=== PATIENT | male | born 1950 | race Caucasian/White ===

== ENCOUNTER → 2017-05-17 | Outpatient (CLI) | payer OTHER, MEDICARE | LOC: FCPNEURO 20:00 | PROVIDERS: ATTEND Student in an Organized Health Care Education/Training Program | DX: G47.33 Obstructive sleep apnea (adult) (pediatric) (principal); G47.31 Primary central sleep apnea ==

== ENCOUNTER 2018-04-25 07:25 | Inpatient (IN) | payer OTHER, MEDICARE ==
--- NOTE | 2018-04-25 07:34 | EDPHY ---
H & P Stated Complaint: chest pain x 3 days Time Seen by Provider: 04/25/18 07:33 HPI/ROS: CHIEF COMPLAINT: Left jaw pain HISTORY OF PRESENT ILLNESS: This is a 67-year-old male with known severe coronary artery disease status post stenting in January of 2007. He presents today complaining of left jaw pain. When questioned, he notes that he has been experiencing this on and off for the past few months. Last night the pain worsened and he also experienced pain in the left chest and left arm. He describes this as an aching sensation. He notes a "tightness "of the left chest. The jaw pain is worse when he walks up a slight grade. He carries nitroglycerin but has not used it. He does not feel short of breath. He had mild nausea last night. He is not lightheaded or dizzy. He underwent a nuclear stress test about a year ago and believes that it was normal. He has been compliant with his medications. He has a history of cocaine use, but has not used any illicit drugs for over 20 years. REVIEW OF SYSTEMS: A ten system review of systems was performed and is negative with the exception of the items mentioned in the HPI. Past medical history: 1. Coronary artery disease next 2. Hypertension 3. Hypercholesterolemia Past surgical history: 1. Rotator cuff repair 2. Left knee meniscal repair Family history: Mother of cancer at age 87. His father might have had heart disease, he is not certain Social history:, he is retired. He does not use tobacco products. He is here with his significant other, Darvin. General Appearance: Alert. Vital signs reviewed. Blood pressure 163/72, heart rate 57 at triage. Eyes: Pupils equal and round, no conjunctival injection, no discharge. Anicteric. ENT, Mouth: Mucous membranes are moist, no oropharyngeal erythema or edema. Neck: No lymphadenopathy, supple. No JVD. Respiratory: Lungs are clear to auscultation; no wheezes, rales, or rhonchi. Cardiovascular: Regular rate and rhythm; no murmur, rub, or gallop. Gastrointestinal: Abdomen is soft and nontender, no masses or organomegaly, bowel sounds normal. Skin: Warm and dry, no rashes on exposed skin, normal color. Back: Nontender to palpation over the thoracolumbar spine. No CVAT. Extremities: No lower extremity edema, no calf tenderness or swelling. Neurological: Alert and oriented. Moving all four extremities easily and equally. Psychiatric: Normal affect. - Personal History Current Tetanus Diphtheria and Acellular Pertussis (TDAP): Yes - Medical/Surgical History Hx Asthma: No Hx Chronic Respiratory Disease: No Hx Diabetes: No Hx Cardiac Disease: Yes Hx Renal Disease: No Hx Cirrhosis: No Hx Alcoholism: No Hx HIV/AIDS: No Other PMH: cardiac stents - Social History Smoking Status: Former smoker Constitutional: Initial Vital Signs Temperature (C) 36.4 C 04/25/18 07:28 Heart Rate 57 L 04/25/18 07:28 Respiratory Rate 18 04/25/18 07:28 Blood Pressure 163/72 H 04/25/18 07:28 O2 Sat (%) 98 04/25/18 07:28 O2 Delivery Mode Room Air Allergies/Adverse Reactions: No Known Allergies Allergy (Unverified 01/02/11 17:56) Home Medications: Medication Instructions Recorded Carvedilol [Coreg (*)] 6.25 mg PO BIDMEAL 04/25/18 Gabapentin [Neurontin 300 MG (*)] 600 mg PO HS 04/25/18 Lisinopril [Zestril 10 mg (*)] 10 mg PO HS 04/25/18 Simvastatin [Zocor] 40 mg PO HS 04/25/18 Medical Decision Making - Diagnostics EKG Interpretation: 12 lead EKG is interpreted in [place] by emergency department physician. No ischemic changes. Imaging Results: Imaging Impressions Chest X-Ray 04/25/18 07:39 Impression: Query low-grade congestive failure without jeff pulmonary edema. ED Course/Re-evaluation: He is pain-free in the emergency department. His history is consistent with unstable angina. Initial troponin was elevated at 0.160 1st EKG is negative for signs of ischemia. Dr. Ramiro Love saw the patient in the emergency department. The patient is being admitted for IV heparinization and cardiac catheterization, likely tomorrow. Patient remained stable at while in the emergency department. He did not have chest pain in the department. Differential Diagnosis: Chest pain including but not limited to myocardial ischemia, pulmonary embolus, chest wall pain, pleural inflammation and pulmonary infectious causes. - Data Points Laboratory Results: Laboratory Results 04/25/18 07:38 04/25/18 07:38 04/25/18 04/25/18 04/25/18 07:44 07:38 07:38 WBC RBC Hgb Hct MCV MCH MCHC RDW Plt Count MPV Neut % (Auto) Lymph % (Auto) [place] % (Auto) Eos % (Auto) Baso % (Auto) Nucleat RBC Rel Count Absolute Neuts (auto) Absolute Lymphs (auto) Absolute Monos (auto) Absolute Eos (auto) Absolute Basos (auto) Absolute Nucleated RBC Immature Gran % Immature Gran # PT 13.7 SEC SEC (12.0-15.0) INR 1.09 (0.83-1.16) APTT 30.7 SEC SEC (23.0-38.0) Sodium Potassium Chloride Carbon Dioxide Anion Gap BUN Creatinine Estimated GFR Glucose Hemoglobin A1c Pending Estim Average Glucose Pending Calcium Magnesium CK-MB (CK-2) Fraction POC Troponin I 0.16 ng/mL H ng/mL (0.00-0.08) Troponin I NT-Pro-B Natriuret Pep Triglycerides Cholesterol Cholesterol Risk Factr LDL Cholesterol, Calc LDL Risk Factor VLDL Cholesterol Non-HDL Cholesterol HDL Cholesterol LDL/HDL Ratio Cholesterol/HDL Ratio 04/25/18 04/25/18 04/25/18 07:38 07:38 07:38 WBC 6.21 10^3/uL 10^3/uL (3.80-9.50) RBC 4.94 10^6/uL 10^6/uL (4.40-6.38) Hgb 15.4 g/dL g/dL (13.7-17.5) Hct 43.8 % % (40.0-51.0) MCV 88.7 fL fL (81.5-99.8) MCH 31.2 pg pg (27.9-34.1) MCHC 35.2 g/dL g/dL (32.4-36.7) RDW 13.1 % % (11.5-15.2) Plt Count 168 10^3/uL 10^3/uL (150-400) MPV 9.7 fL fL (8.7-11.7) Neut % (Auto) 56.7 % % (39.3-74.2) Lymph % (Auto) 28.3 % % (15.0-45.0) [place] % (Auto) 10.6 % % (4.5-13.0) Eos % (Auto) 3.1 % % (0.6-7.6) Baso % (Auto) 0.8 % % (0.3-1.7) Nucleat RBC Rel Count 0.0 % % (0.0-0.2) Absolute Neuts (auto) 3.52 10^3/uL 10^3/uL (1.70-6.50) Absolute Lymphs (auto) 1.76 10^3/uL 10^3/uL (1.00-3.00) Absolute Monos (auto) 0.66 10^3/uL 10^3/uL (0.30-0.80) Absolute Eos (auto) 0.19 10^3/uL 10^3/uL (0.03-0.40) Absolute Basos (auto) 0.05 10^3/uL 10^3/uL (0.02-0.10) Absolute Nucleated RBC 0.00 10^3/uL 10^3/uL (0-0.01) Immature Gran % 0.5 % % (0.0-1.1) Immature Gran # 0.03 10^3/uL 10^3/uL (0.00-0.10) PT INR APTT Sodium Cancelled 141 mEq/L mEq/L (135-145) Potassium Cancelled 4.3 mEq/L mEq/L (3.5-5.2) Chloride Cancelled 106 mEq/L mEq/L (97-110) Carbon Dioxide Cancelled 27 mEq/l mEq/l (22-31) Anion Gap Cancelled 8 mEq/L mEq/L (6-14) BUN Cancelled 16 mg/dL mg/dL (7-23) Creatinine Cancelled 1.1 mg/dL mg/dL (0.7-1.3) Estimated GFR Cancelled > 60 Glucose Cancelled 107 mg/dL H mg/dL (70-100) Hemoglobin A1c Estim Average Glucose Calcium Cancelled 9.4 mg/dL mg/dL (8.5-10.4) Magnesium 1.9 mg/dL mg/dL (1.6-2.3) CK-MB (CK-2) Fraction 4.49 ng/mL ng/mL (0.00-4.55) POC Troponin I Troponin I 0.190 ng/mL H ng/mL (0.000-0.034) NT-Pro-B Natriuret Pep 84 pg/mL pg/mL (0-125) Triglycerides 78 mg/dL mg/dL (40-150) Cholesterol 115 mg/dL L mg/dL (140-220) Cholesterol Risk Factr 0.5 (0.2-1.0) LDL Cholesterol, Calc 56 mg/dL L mg/dL (80-100) LDL Risk Factor 0.6 (0.2-1.0) VLDL Cholesterol 16 mg/dL mg/dL (8-25) Non-HDL Cholesterol 72 mg/dL L mg/dL (90-129) HDL Cholesterol 43 mg/dL mg/dL (40-65) LDL/HDL Ratio 1.31 RATIO RATIO (1.00-3.64) Cholesterol/HDL Ratio 2.67 RATIO RATIO (1.00-4.97) Medications Given: Atorvastatin Calcium (Lipitor) 20 mg PO DAILY [facility] Stop: 10/22/18 09:29 Last Admin: 04/25/18 14:40 Dose: 20 mg Heparin Sodium (Porcine) (Heparin 50 Units/Ml (Premix)) 500 mls @ 0 mls/hr IV CONT MARK; As Directed PRN Reason: Protocol Stop: 10/22/18 09:44 Last Admin: 04/25/18 10:15 Dose: 500 mls Lisinopril (Zestril) 10 mg PO DAILY [facility] Stop: 10/22/18 09:29 Last Admin: 04/25/18 14:41 Dose: 10 mg Discontinued Medications Aspirin Buffered (Aspirin Ec) 325 mg PO ONCALL ONE Stop: 04/25/18 09:31 Last Admin: 04/25/18 14:14 Dose: Not Given Diazepam (Valium) 5 mg PO ONCALL ONE Stop: 04/25/18 09:31 Last Admin: 04/25/18 14:15 Dose: Not Given Diphenhydramine HCl (Benadryl) 25 mg PO ONCALL ONE Stop: 04/25/18 09:31 Last Admin: 04/25/18 14:15 Dose: Not Given Famotidine (Pepcid) 20 mg PO ONCALL ONE Stop: 04/25/18 09:31 Last Admin: 04/25/18 14:15 Dose: Not Given Point of Care Test Results: Chemistry 04/25/18 07:44 POC Troponin I 0.16 ng/mL H ng/mL (0.00-0.08) Departure - Departure Disposition: [facility] Inpatient Acute Clinical Impression: Angina of effort Condition: Good
[2018-04-25 07:51] LABS: PLATELET COUNT 168 10^3/uL (150-400)
--- NOTE | 2018-04-25 09:26 | PDCARCONS ---
Cardiology Consult Reason for Consult: Chest pain Chief Complaint: Chest pain Requesting Physician: Hugh History of Present Illness: 67-year-old male with known severe coronary artery disease last investigated in 2006 presents with a several month history of crescendo exertional left jaw pain left arm pain, left chest pain associated with mild nausea and shortness of breath. This occurs with exertion. It has been increasing in duration, frequency, and occurring at lower work loads. Last night while going to the mailbox he began experiencing terrible symptoms and came to the emergency department this morning for further evaluation. He is pain-free on my arrival. Patient denies PND orthopnea. He has had no syncope or near syncope. He has had no palpitations. Patient's coronary disease was diagnosed with exactly the same symptoms in 2006. Coronary angiography at that time showed severe calcific atherosclerotic cardiovascular disease. He presented with an acute inferior wall PR and underwent primary angioplasty of the right coronary. He had a critical circumflex stenosis and underwent elective PCI of that a day later. His LAD was diffusely diseased and heavily calcified. This was managed medically. His LV function at that time was normal. Risk factors have been relatively well modified on Orlin inhibitor, statin therapy. He took dual antiplatelet therapy for 2 years. He has made no significant lifestyle changes. He has been compliant with medications. Cardiovascular disease was felt to be secondary to combination of traditional risk factors plus extensive cocaine use over 20 years. He has been drug free for some time. Coronary angiogram from 2006 reviewed. History Information - Allergies/Home Medication List Allergies/Adverse Reactions: No Known Allergies Allergy (Unverified 01/02/11 17:56) Home Medications: Coreg (*) 04/25/18 [Last Taken Unknown] Gabapentin 04/25/18 [Last Taken Unknown] Lisinopril 04/25/18 [Last Taken Unknown] SIMVASTATIN 04/25/18 [Last Taken Unknown] I have personally reviewed and updated: family history, medical history, social history, surgical history Past Medical History: - Past Medical History coronary artery disease, hypertension, hyperlipidemia - Surgical History Reports: coronary stent - Family History Positive for: non-pertinent - Social History Smoking Status: Former smoker Cardiac History - Cardiac History Cardiac Risk Factors: hypertension (>140/90), lipidemia, age > 65 Timing/Duration: Weeks Severity: moderate Severity Scale: 7 Location: shoulder Activities at Onset: activity Modifying Factors: improves with: rest Associated Symptoms: shortness of breath JUDAH Risk Evaluation greater or equal to 3 CAD risk factors: yes known CAD(stenosis greater or eqaul to 50%): yes ASA use in past 7 days: yes severe angina(greater or equal to 2 episodes in 24hrs): yes EKG ST changes greater or equal to 0.5mm: no positive cardiac marker: yes Physical Exam Physical Exam: Temp Pulse Resp BP Pulse Ox 36.9 C 51 L 18 126/59 H 96 04/25/18 09:14 04/25/18 09:14 04/25/18 09:14 04/25/18 09:14 04/25/18 09:14 Constitutional: no apparent distress, appears nourished Eyes: PERRL, anicteric sclera Ears, Nose, Mouth, Throat: moist mucous membranes Cardiovascular: regular rate and rhythym, no murmur, rub, or gallop, No JVD Peripheral Pulses: 1+: carotid (R), carotid (L), femoral (R), femoral (L), dorsalis-pedis (R), dorsalis-pedis (L) Respiratory: no respiratory distress, no rales or rhonchi Gastrointestinal: normoactive bowel sounds, soft, non-tender abdomen, no palpable masses Genitourinary: no bladder fullness Skin: warm, normal color, No rash Musculoskeletal: No joint tenderness Neurologic: AAOx3, sensation intact bilaterally, No facial droop Psychiatric: interacting appropriately, not anxious Lymph, Heme, Immunologic: no cervical LAD, no supraclavicular LAD Lab and Imaging 04/25/18 07:38 04/25/18 07:38 WBC 6.21 10^3/uL (3.80-9.50) 04/25/18 07:38 RBC 4.94 10^6/uL (4.40-6.38) 04/25/18 07:38 Hgb 15.4 g/dL (13.7-17.5) 04/25/18 07:38 Hct 43.8 % (40.0-51.0) 04/25/18 07:38 MCV 88.7 fL (81.5-99.8) 04/25/18 07:38 MCH 31.2 pg (27.9-34.1) 04/25/18 07:38 MCHC 35.2 g/dL (32.4-36.7) 04/25/18 07:38 RDW 13.1 % (11.5-15.2) 04/25/18 07:38 Plt Count 168 10^3/uL (150-400) 04/25/18 07:38 MPV 9.7 fL (8.7-11.7) 04/25/18 07:38 Neut % (Auto) 56.7 % (39.3-74.2) 04/25/18 07:38 Lymph % (Auto) 28.3 % (15.0-45.0) 04/25/18 07:38 [place] % (Auto) 10.6 % (4.5-13.0) 04/25/18 07:38 Eos % (Auto) 3.1 % (0.6-7.6) 04/25/18 07:38 Baso % (Auto) 0.8 % (0.3-1.7) 04/25/18 07:38 Nucleat RBC Rel Count 0.0 % (0.0-0.2) 04/25/18 07:38 Absolute Neuts (auto) 3.52 10^3/uL (1.70-6.50) 04/25/18 07:38 Absolute Lymphs (auto) 1.76 10^3/uL (1.00-3.00) 04/25/18 07:38 Absolute Monos (auto) 0.66 10^3/uL (0.30-0.80) 04/25/18 07:38 Absolute Eos (auto) 0.19 10^3/uL (0.03-0.40) 04/25/18 07:38 Absolute Basos (auto) 0.05 10^3/uL (0.02-0.10) 04/25/18 07:38 Absolute Nucleated RBC 0.00 10^3/uL (0-0.01) 04/25/18 07:38 Immature Gran % 0.5 % (0.0-1.1) 04/25/18 07:38 Immature Gran # 0.03 10^3/uL (0.00-0.10) 04/25/18 07:38 Sodium 141 mEq/L (135-145) 04/25/18 07:38 Potassium 4.3 mEq/L (3.5-5.2) 04/25/18 07:38 Chloride 106 mEq/L (97-110) 04/25/18 07:38 Carbon Dioxide 27 mEq/l (22-31) 04/25/18 07:38 Anion Gap 8 mEq/L (6-14) 04/25/18 07:38 BUN 16 mg/dL (7-23) 04/25/18 07:38 Creatinine 1.1 mg/dL (0.7-1.3) 04/25/18 07:38 Estimated GFR > 60 04/25/18 07:38 Glucose 107 mg/dL (70-100) H 04/25/18 07:38 Calcium 9.4 mg/dL (8.5-10.4) 04/25/18 07:38 POC Troponin I 0.16 ng/mL (0.00-0.08) H 04/25/18 07:44 EKG Interpretation: Positive for: normal sinsus rhythm A/P Assessment: 67-year-old male known severe atherosclerotic cardiovascular disease, heavily calcified coronary arteries by angiography in 2006 status post 2 vessel PCI of the eek right and eek circumflex with residual LAD disease at that time presenting with crescendo angina. Typical history with jaw pain, arm pain associated with increasing frequency, increasing duration, at lower work loads now with elevated troponin. Patient is currently pain-free with a normal EKG. Recommendations are for 24 hr of heparin with diagnostic angiogram to be performed in the morning. Options based on prior angiography seem to be somewhat limited. Will await results of angiography to make definitive decision on medical therapy versus surgical therapy versus repeat PCI. Continue to pursue aggressive secondary risk factor modification. Risks and benefits of this approach were discussed with the patient. Will proceed. No indications for angiography today. In light of prior angiography would recommend having surgical consultation available. Due to the heavily calcified nature of his coronaries. Reviewing prior angiography and need for large sheath sized for potential rotational atherectomy would recommend groin approach. Plan: Heparin for 24-48 hours Diagnostic coronary angiogram scheduled for tomorrow morning. Continue aggressive medical therapy including beta-annabella, statin, aspirin. Review of Systems Review of Systems: - Review of Systems Constitutional: denies: chills, fever, malaise EENTM: no symptoms reported Respiratory: no symptoms reported Cardiac: denies: edema, irregular heart rate, lightheadedness, palpitations, syncope Gastrointestinal/Abdominal: denies: abdominal pain, diarrhea, nausea, vomiting, black stools, blood streaked stools Genitourinary: no symptoms Musculoskelatal: no symptoms Skin: no symptoms Neurological: no symptoms Hematologic/Lymphatic: no symptoms reported Immunologic/allergic: no symptoms reported Past Medical History PMH: - Personal History Current Tetanus Diphtheria and Acellular Pertussis (TDAP): Yes - Medical/Surgical History Hx Asthma: No Hx Chronic Respiratory Disease: No Hx Cardiac Disease: Yes Hx Diabetes: No Hx Renal Disease: No Hx Alcoholism: No Hx Cirrhosis: No Hx HIV/AIDS: No Other PMH: cardiac stents - Social History Smoking Status: Former smoker Additional Social History:
[2018-04-25] MEDS ORDERED: NITROGLYCERIN 0.4 MG BTL SL PRN (09:30)
[2018-04-25] MEDS ORDERED: DIAZEPAM 5 MG TAB PO ONE (09:30)
[2018-04-25] MEDS ORDERED: ASPIRIN EC 325 MG TAB PO ONE (09:30)
[2018-04-25] MEDS ORDERED: FAMOTIDINE 20 MG TAB PO ONE (09:30)
[2018-04-25] MEDS ORDERED: diphenhydrAMINE 25 MG CAP PO ONE (09:30)
[2018-04-25] MEDS ORDERED: ACETAMINOPHEN 325 MG TAB PO PRN (09:30)
[2018-04-25] MEDS: HEPARIN/DEXTROSE 500 ML IV SCH (10:15)
--- NOTE | 2018-04-25 10:16 | ASMTCMCOM ---
CM Note CM Note Notes: Reviewed chart. Pt presented to the Emergency Department w/ c/o chest pain x several days. History includes coronary artery disease with prior stenting, HTN, HLD and former smoker. Pt is and lives in [place]. His son, Carlitos Trinidad is his emergency contact . Pt to be admitted for further evaluation and treatment. Discharge needs remain unclear at this time. CM will continue to follow. Discharge Plan: To be determined Date Signed: 04/25/2018 10:16 AM Electronically Signed By:Alda Reynoso RN
[2018-04-25 10:19] LABS: INR 1.09 (0.83-1.16); PROTIME(PATIENT) 13.7 SEC (12.0-15.0)
--- NOTE | 2018-04-25 12:05 | ECHO ---
[email or web address] [address] [address] Main: [phone] Echocardiography Examination Transthoracic Name: CECELIA AGUILAR MR#: [id number] Study Date: 04/25/2018 Study Time: 10:40 AM Date of : 1950 Age: 67 year(s) Height: 177.8 cm (70 in.) Weight: 108.86 kg (240 lb.) BSA: 2.26 m2 Gender: Male Examination: Echo Indication: ACS, hx 4 stents Image Quality: Technically Difficult Contrast: Requested by: Ramiro Love md BP: / Heart Rate: Rhythm: Indication: ACS, hx 4 stents Procedure Staff Referring Physician: Commis Chef: Mariela Sheikh RDCS Reading Physician: Ramiro Love MD Requesting Provider: Ordering Physician: Ramiro Love MD Indication: ACS, hx 4 stents Measurements Chambers AV/MV Label Value Normal Value Label Value Normal Value EF lower range (%) 55 % AV PGmax 5 mmHg EF upper range (%) 60 % AV PGmean 3 mmHg IVSd, 2D 0.9 cm (0.6cm - 1.1cm) AV Vmax, Caliper 1.13 m/s LVDd, 2D 5.5 cm (4.2cm - 5.9cm) MV A Vmax 0.57 m/s LVPWd, 2D 0.9 cm (0.6cm - 1cm) MV E' lateral 0.16 m/s LADs, 2D 4.9 cm (3cm - 4cm) MV E' mean 0.12 m/s Additional Vessels MV E' septal 0.07 m/s Label Value Normal Value MV E Vmax 0.98 m/s AoAsc 2.8 cm MV E/A 1.72 AoRoot, MM 2.9 cm (2.2cm - 3.7cm) MV E/E' lateral 6.3 MV E/E' mean 8.52 MV E/E' septal 15 (0.45 - 1.25) Conclusions Overall Conclusions: No pericardial effusion. Preserved LV systolic function with question of regional wall motion abnormalities. Mild mitral regurgitation. Patient: CECELIA AGUILAR Study Date: 04/25/2018 Page 1 of 2 10:40 AM Findings Left Ventricle: Diastolic dysfunction is indeterminate.. EF range is estimated at 55 % - 60 %. Cannot R/O mid/basal inferolateral hypokinesis. All remaining LV segments appear to have normal motion. Right Ventricle: Normal size right ventricle. Left Atrium: The left atrium is mildly dilated. Right Atrium: The right atrium is normal in size. Mitral Valve: Mitral valve appears structurally normal. Mild mitral regurgitation. Aortic Valve: No aortic valve regurgitation. Aortic leaflets exhibit mild calcification. Tricuspid Valve: Tricuspid valve leaflets are structurally normal. Pulmonic Valve: Pulmonic valve is poorly visualized. Aorta: The aortic root size in M-mode measures 2.9 cm. The ascending aorta measures 2.8 cm. Aorta Measurements AoRoot, MM is 2.9 cm. Pericardium: A pericardial fat pad is present. Exam Details Procedure Ordered: Echo Image Quality: Technically Difficult (No Signature Object) Patient: CECELIA AGUILAR Study Date: 04/25/2018 Page 2 of 2 10:40 AM [id number]
[2018-04-25 14:34] LABS: CREATINE KINASE 155 IU/L (0-224)
[2018-04-25] MEDS: ATORVASTATIN CALCIUM 20 MG TAB PO SCH (14:40)
[2018-04-25] MEDS: LISINOPRIL 10 MG TAB PO SCH (14:41)
--- NOTE | 2018-04-25 16:33 | CPEKG ---
Test Reason : OPEN Blood Pressure : / mmHG Vent. Rate : 052 BPM Atrial Rate : 051 BPM P-R Int : 180 ms QRS Dur : 088 ms QT Int : 418 ms P-R-T Axes : 068 046 056 degrees QTc Int : 389 ms Sinus rhythm Confirmed by Makenzie Reese ([id number]) on 04/25/2018 4:33:46 PM Referred By: Makenzie Reese Confirmed By:Makenzie Reese
[2018-04-25 17:11] LABS: CREATINE KINASE 183 IU/L (0-224)
[2018-04-25] MEDS: CARVEDILOL 6.25 MG TAB PO SCH (18:28)
[2018-04-25 20:03] LABS: CREATINE KINASE 211 IU/L (0-224)
[2018-04-25] MEDS ORDERED: METOPROLOL TARTRATE 5 MG/5 ML INJ IVP PRN (20:24)
[2018-04-25] MEDS ORDERED: METOPROLOL TARTRATE 5 MG/5 ML INJ IVP ONE (20:30)
[2018-04-25] MEDS: TEMAZEPAM 15 MG CAP PO PRN (23:08)
[2018-04-26 03:51] LABS: CREATINE KINASE 175 IU/L (0-224)
[2018-04-26] MEDS ORDERED: ASPIRIN EC 325 MG TAB PO ONE (07:00)
[2018-04-26] MEDS ORDERED: diphenhydrAMINE 25 MG CAP PO ONE (07:00)
[2018-04-26] MEDS ORDERED: DIAZEPAM 5 MG TAB PO ONE (07:00)
[2018-04-26] MEDS ORDERED: FAMOTIDINE 20 MG TAB PO ONE (07:00)
[2018-04-26] MEDS ORDERED: LIDOCAINE 1% 300 MG/30 ML SDV ONE (07:22)
[2018-04-26] MEDS ORDERED: MIDAZOLAM 2 MG/2 ML VIAL ONE (07:23)
[2018-04-26] MEDS ORDERED: IOPAMIDOL (ISOVUE-370) 150 ML BTL IV ONE ×2 (07:23)
[2018-04-26] MEDS ORDERED: fentaNYL 100 MCG/2 ML INJ ONE (07:23)
[2018-04-26] MEDS ORDERED: VERAPAMIL 5 MG/2 ML VIAL ONE (08:04)
[2018-04-26] MEDS ORDERED: HEPARIN 10,000 UNIT/10 ML MDV (1,000 UNIT/ML) ONE (08:05)
--- NOTE | 2018-04-26 08:13 | PDPROPOC ---
Sedation Plan of Care Sedation Plan of Care: vital signs stable, mental status noted, patient educated of risks, benefits, alternatives, patient can tolerate sedation ASA Classification: ASA 2 Planned drugs: fentanyl, midazolam Mallampati Score: Class 2 Mallampati Reference Image: Patient passed 3-3-2 rule?: Yes
[2018-04-26] MEDS ORDERED: ONDANSETRON 4 MG/2 ML VIAL ONE (08:21)
--- NOTE | 2018-04-26 08:49 | PDDXCAT ---
Diagnostic Cath Note - . Date: 04/26/18 Pipe Assembly Worker: Ivan Indication: CCC Class III and IV angina on medical treatment - Procedure Access: right wrist Procedure: left heart catheterization, coronary angiography, left ventriculogram - Materials Left Heart Cath size: 5F Left Heart Cath materials: pigtail, Felipe's R (Walls 4) - Findings-Left Heart Catheterization LM: Unobstructed LAD: Diffuse 75-85% stenosis of the mid LAD LCX: 99% stenosis of the proximal circumflex RCA: Dominant: 90% stenosis of the distal RCA EDP: 15 mm of mercury LVEF: 65% Wall motion: Normal Complications: None Estimated blood loss: <50ml Closure method: TR Band Assessment: Severe three-vessel coronary disease with critical stenosis of the circumflex, RCA and progressive mid LAD stenosis. Preserved LV systolic function. Plan: Recommend coronary bypass grafting x4. Would consider repeat PCI of the right coronary and circumflex with potential rotational atherectomy of the LAD if the patient declines. Continue aggressive secondary prevention. Patient Problems: Problems Problem Status Onset Angina of effort Acute
--- NOTE | 2018-04-26 08:52 | SOAPPROG ---
[facility] Progress Note Assessment/Plan: Assessment: Problem list: 1. Crescendo angina 2. Multivessel coronary artery disease with preserved LV systolic function 3. Hyperlipidemia 4. History of acute inferior wall myocardial infarction, Procedure: Left heart catheterization coronary ventricular angiography, echocardiography 04/26/18 08:49 Impression: Stable overnight without recurrent angina. Troponin suggest higher cardiovascular risk over the next 30 days. Patient tolerating heparin well. Coronary angiography shows three-vessel disease with preserved LV systolic function. Clear progression [place] vessels. Recommend coronary artery bypass grafting x4. If patient declines would consider high risk PCI of the right coronary clear/circumflex followed by rotational atherectomy of the LAD. Recommendations: Surgical consultation. Continue aggressive secondary prevention In light of elevated troponins and lesions seen on angiography will continue heparin while determining revascularization strategy. Subjective: Uneventful 24 hr. Clear rise in troponin. Long discussion today after reviewing his angiograms from 2006 regarding revascularization strategies in the setting of known critical LAD disease in 2006. Will plan for a diagnostic angiogram today which has already been performed. Revascularization strategies to be determined over the next 24 hr. Cardiac review of systems is negative for chest pain, shortness of breath, PND , orthopnea, palpitations, syncope, near syncope, edema. Objective: Vital Signs Temp Pulse Resp BP Pulse Ox 36.7 C 53 L 18 130/67 H 91 L 04/26/18 08:00 04/26/18 08:00 04/26/18 08:00 04/26/18 08:00 04/26/18 08:00 04/25/18 04/26/18 04/27/18 05:59 05:59 05:59 Intake Total 1585 Balance 1585 PT 13.7 SEC (12.0-15.0) 04/25/18 07:38 INR 1.09 (0.83-1.16) 04/25/18 07:38 Physical Exam - Physical Exam General Appearance: alert, no apparent distress Neck: supple Respiratory: lungs clear Cardiac/Chest: regular rate, rhythm Peripheral Pulses: 1+: carotid (R), carotid (L), femoral (R), femoral (L) Abdomen: normal bowel sounds, non-tender, soft Back: Normal inspection Skin: No rash Extremities: No pedal edema, No calf tenderness Neuro/Psych: alert, No facial droop ICD10 Worksheet Patient Problems: Problems Problem Status Onset Angina of effort Acute
[2018-04-26] MEDS: LISINOPRIL 10 MG TAB PO SCH (11:02)
[2018-04-26] MEDS: CARVEDILOL 6.25 MG TAB PO SCH ×2 (11:02→17:58)
[2018-04-26] MEDS: ATORVASTATIN CALCIUM 20 MG TAB PO SCH (11:02)
[2018-04-26] MEDS ORDERED: LIDOCAINE 1% 2 ML INJ ID PRN (11:13)
--- NOTE | 2018-04-26 12:15 | ASMTCMCOM ---
CM Note CM Note Notes: Dr Love recommending CABG x 4. Patient has agreed, and the procedure is scheduled for tomorrow 04/27. Discharge needs TBD on an ongoing basis. Case Management will follow. Date Signed: 04/26/2018 12:14 PM Electronically Signed By:Kanwal Meza RN
[2018-04-26] MEDS ORDERED: MAGNESIUM HYDROXIDE 30 ML UDCUP PO ONE (14:00)
--- NOTE | 2018-04-26 15:44 | GCON ---
[f rep st] CONSULTATION DATE OF CONSULTATION: 04/26/2018 REASON FOR CONSULTATION: Coronary artery disease. HISTORY OF PRESENT ILLNESS: The patient is a 67-year-old gentleman with a history of coronary artery disease who presented with progressive angina. This has been getting progressively worse, and he ca me to the hospital for evaluation after a particularly difficult episode. He has had a previous infe rior wall CA and had PCI of the right coronary back in 2006. The remainder of his disease was manage d medically. He now returns with recurrent angina. PAST MEDICAL HISTORY: Remarkable for coronary artery disease, hypertension and hyperlipidemia. MEDICATIONS: Coreg, gabapentin, lisinopril, and simvastatin. PHYSICAL EXAMINATION: GENERAL APPEARANCE: He is a well-developed, well nourished-male in no acute d istress. HEENT: Pupils are equally round, reactive. CARDIAC: Reveals a regular rate. No murmur. LUNGS: Clear to auscultation. ABDOMEN: Soft and nontender. EXTREMITIES: Show no signs of previo us vein stripping. Both greater saphenous veins are intact bilaterally. DIAGNOSTIC DATA: Review of coronary angiography shows severe three-vessel disease and review of the echocardiogram shows normal left ventricular function with no valvular heart disease. His laboratory studies show baseline creatinine is 1.1. Hematocrit 43. EKG is normal sinus rhythm. IMPRESSION: Significant multivessel coronary artery disease with progressive angina. I had a length y discussion with the patient including risks, benefits, and alternatives to coronary artery bypass g kumar, and he has agreed to my recommendation for surgical revascularization. The plan is for surg payal tomorrow. He has been maintained on heparin. I appreciate the opportunity to see him. /[id number]/MODL
--- NOTE | 2018-04-26 16:27 | PDMN ---
Medical Necessity Medical necessity: MCG M40 Angina, A-1 day: 67 yo presented w/ angina, admit to [facility] for workup initially, s/p heart cath. Pt w/ sig multivessel CAD w/ progressive angina, remains on heparin gtt, plan for OR tomorrow for CABG. Change to IP status 04/26/18@1620 per MD order.
[2018-04-26] MEDS ORDERED: MAGNESIUM CITRATE 300 ML BOTTLE PO ONE (20:45)
[2018-04-26] MEDS: GABAPENTIN 300 MG CAP PO SCH (20:52)
[2018-04-26] MEDS ORDERED: CHLORHEXIDINE GLUC HIBICLENS 118 ML BTL TP SCH (21:00)
[2018-04-26] MEDS: HEPARIN/DEXTROSE 500 ML IV SCH (23:04)
[2018-04-26] MEDS: TEMAZEPAM 15 MG CAP PO PRN (23:05)
[2018-04-27] MEDS ORDERED: MANNITOL 25% 12.5 GM/50 ML VIAL IVP ONE (06:00)
[2018-04-27] MEDS ORDERED: NS 1,000 ML IV ONE (06:00)
[2018-04-27] MEDS ORDERED: PHENYLEPHRINE HCL 50 MG in NS 250 ML IV ONE (06:00)
[2018-04-27] MEDS ORDERED: NOREPINEPHRINE BITARTRATE 16 MG in NS 250 ML IV ONE (06:00)
[2018-04-27] MEDS ORDERED: AMINOCAPROIC ACID 5 GM/20 ML VIAL IV ONE (06:00)
[2018-04-27] MEDS ORDERED: CARDIOPLEGIC SOLUTION 1,052.8 ML PF ONE (06:00)
[2018-04-27] MEDS ORDERED: VERAPAMIL 5 MG, NITROGLYCERIN 2.5 MG, HEPARIN 500 UNIT, SODIUM BICARBONATE 0.2 MEQ in L... MISC ONE (06:00)
[2018-04-27] MEDS ORDERED: MUPIROCIN 2% 22 GM OINT NS ONE (06:00)
[2018-04-27] MEDS ORDERED: INSULIN REGULAR HUMAN 100 UNIT in NS 100 ML IV ONE (06:00)
[2018-04-27] MEDS ORDERED: CITRATE DEXTROSE SOLN 500 ML BAG MISC ONE (06:00)
[2018-04-27] MEDS ORDERED: ceFAZolin 2 GM/DEXTROSE 100 ML IV ONE (06:00)
[2018-04-27] MEDS ORDERED: PAPAVERINE HCL 60 MG in NS 100 ML IV ONE (06:00)
[2018-04-27] MEDS ORDERED: EPINEPHrine 1 MG/ML INJ ONE (07:29)
[2018-04-27] MEDS ORDERED: PHENYLEPHRINE 10 MG/ML SDV ONE (07:31)
[2018-04-27] MEDS ORDERED: ROCURONIUM 100 MG/10 ML VIAL ONE (07:34)
[2018-04-27] MEDS ORDERED: LIDOCAINE 2% 5 ML SDV ONE (07:36)
--- NOTE | 2018-04-27 07:52 | PDHPUP ---
History & Physical Update H&P update statement: This history and physical update is based on an assessment of the patient which was completed after admission or registration (within 24 hours), but prior to the surgery/procedure. H&P update: no change in patient's condition since H&P completed
[2018-04-27] MEDS ORDERED: DOBUTamine 500 MG in D5W 250 ML IV ONE (08:00)
[2018-04-27] MEDS ORDERED: MILRINONE/DEXTROSE/100 ML BAG IV ONE (08:22)
[2018-04-27] MEDS ORDERED: CALCIUM CHLORIDE 1 GM/10 ML INJ ONE ×3 (08:22→08:25)
[2018-04-27] MEDS ORDERED: PROTAMINE SULFATE 50 MG/5 ML VIAL IVP ONE ×2 (08:22→12:08)
[2018-04-27] MEDS ORDERED: niCARdipine/NACL/200 ML BAG IV ONE (08:23)
[2018-04-27] MEDS ORDERED: HEPARIN 10,000 UNIT/10 ML MDV (1,000 UNIT/ML) ONE ×2 (08:23→08:26)
[2018-04-27] MEDS ORDERED: AMINOCAPROIC ACID 5 GM/20 ML VIAL ONE ×2 (08:23→08:25)
[2018-04-27] MEDS ORDERED: DOPamine/DEXTROSE 400 MG/250 ML BAG IV ONE (08:23)
[2018-04-27] MEDS ORDERED: NA BICARBONATE 50 MEQ/50 ML VIAL ONE (08:23)
[2018-04-27] MEDS ORDERED: AMIODARONE HCL 150 MG/3 ML VIAL ONE ×2 (08:24→08:26)
[2018-04-27] MEDS ORDERED: ceFAZolin 1 GM VIAL ONE (08:24)
[2018-04-27] MEDS ORDERED: NITROGLYCERIN/D5W 50 MG/250 ML BOTTLE IV ONE (08:24)
[2018-04-27] MEDS ORDERED: ADENOSINE 6 MG/2 ML VIAL ONE (08:24)
[2018-04-27] MEDS ORDERED: SODIUM BICARBONATE 50 MEQ/50 ML SYR ONE (08:25)
[2018-04-27] MEDS ORDERED: LIDOCAINE 2% 100 MG/5 ML SYR ONE (08:25)
[2018-04-27] MEDS ORDERED: ALBUMIN 5% 250 ML BOTTLE IV ONE ×2 (08:25→12:25)
[2018-04-27] MEDS ORDERED: methylPREDNISolone SOD SUCC 1 GM/8 ML VIAL ONE (08:26)
[2018-04-27] MEDS ORDERED: CITRATE DEXTROSE SOLN 500 ML BAG ONE (08:26)
[2018-04-27] MEDS ORDERED: MAGNESIUM SULFATE 1 GM/2 ML VIAL ONE (08:26)
[2018-04-27] MEDS ORDERED: PAPAVERINE HCL 60 MG/2 ML SDV ONE ×2 (08:48→09:57)
[2018-04-27] MEDS ORDERED: VERAPAMIL 5 MG/2 ML VIAL ONE (08:48)
[2018-04-27] MEDS ORDERED: MINERAL OIL 10 ML VIAL ONE (08:49)
[2018-04-27] MEDS ORDERED: LR 1,000 ML IV ONE (09:12)
[2018-04-27] MEDS ORDERED: CEFAZOLIN 2 GM/DEXTROSE/100 ML BAG IV ONE (09:14)
[2018-04-27] MEDS ORDERED: MUPIROCIN 2% 22 GM OINT ONE (09:14)
[2018-04-27] MEDS ORDERED: fentaNYL 250 MCG/5 ML INJ ONE ×2 (09:36)
[2018-04-27] MEDS ORDERED: PROPOFOL 200 MG/20 ML VIAL ONE (09:36)
[2018-04-27] MEDS ORDERED: METOPROLOL TARTRATE 5 MG/5 ML INJ ONE (09:41)
--- NOTE | 2018-04-27 09:46 | PDANEPAE ---
ANE History of Present Illness cab ANE Past Medical History - Cardiovascular History Hx Hypertension: Yes Hx Arrhythmias: No Hx Chest Pain: Yes Hx Coronary Artery / Peripheral Vascular Disease: Yes Hx CHF / Valvular Disease: No Hx Palpitations: No - Pulmonary History Hx COPD: No Hx Asthma/Reactive Airway Disease: No Hx Recent Upper Respiratory Infection: No Hx Oxygen in Use at Home: No Hx Sleep Apnea: Yes Sleep Apnea Screening Result - Last Documented: Positive - Neurologic History Hx Cerebrovascular Accident: No Hx Seizures: No Hx Dementia: No - Endocrine History Hx Diabetes: No Hypothyroid: No Hyperthyroid: No Obesity: mild - Renal History Hx Renal Disorders: No - Liver History Hx Hepatic Disorders: No - GI History GERD: no ANE Review of Systems Review of Systems: - Exercise capacity Exercise capacity: <4 METS ANE Patient History - Allergies Allergies/Adverse Reactions: No Known Allergies Allergy (Unverified 01/02/11 17:56) - Home Medications Home medications: home medication list seen and reviewed Home Medications: Carvedilol [Coreg (*)] 6.25 mg PO BIDMEAL 04/25/18 [Last Taken 04/25/18] Gabapentin [Neurontin 300 MG (*)] 600 mg PO HS 04/25/18 [Last Taken 04/24/18] Lisinopril [Zestril 10 mg (*)] 10 mg PO HS 04/25/18 [Last Taken 04/24/18] Simvastatin [Zocor] 40 mg PO HS 04/25/18 [Last Taken 04/24/18] - NPO status NPO Status: no food or drink >8 hours NPO Since - Liquids (Date): 04/27/18 NPO Since - Liquids (Time): 00:00 NPO Since - Solids (Date): 04/27/18 NPO Since - Solids (Time): 00:00 - Anes Hx Anes Hx: post operative nausea and vomiting Hx Anesthesia Complications (with details): n/v with opioids - Smoking Hx Smoking Status: Former smoker ANE Labs/Vital Signs - Labs Result Diagrams: 04/25/18 07:38 04/25/18 07:38 - Vital Signs Blood Pressure: 120/76 Heart Rate: 56 Respiratory Rate: 11 O2 Sat (%): 96 Height: 177.8 cm Weight: 108.4 kg ANE Physical Exam - Airway Mallampati Score: Class 2 Mouth exam: normal dental/mouth exam - Pulmonary Pulmonary: no respiratory distress - Cardiovascular Cardiovascular: regular rate and rhythym - ASA Status ASA Status: III ANE Anesthesia Plan Anesthesia Plan: general endotracheal anesthesia Lines/Monitors: arterial line, central line, ZEFERINO (pulm art cath)
[2018-04-27] MEDS ORDERED: MIDAZOLAM 2 MG/2 ML VIAL IVP ONE (10:01)
[2018-04-27] MEDS ORDERED: MIDAZOLAM 2 MG/2 ML VIAL ONE (10:08)
[2018-04-27] MEDS ORDERED: SUCCINYLCHOLINE CHLORIDE 200 MG/10 ML SYR IVP ONE (10:29)
[2018-04-27] MEDS ORDERED: GLYCOPYRROLATE 0.2 MG/1 ML VIAL ONE ×2 (11:29)
[2018-04-27] MEDS ORDERED: PROPOFOL/EMULSION 500 MG/50 ML BOTTLE IV ONE ×2 (15:02→16:35)
[2018-04-27] MEDS ORDERED: ALBUMIN 5% 250 ML IV PRN (15:45)
[2018-04-27] MEDS ORDERED: ACETAMINOPHEN 650 MG SUPP PR PRN (15:45)
[2018-04-27] MEDS ORDERED: LACTULOSE 20 GM/30 ML UDCUP PO PRN (15:45)
[2018-04-27] MEDS ORDERED: D50W 25 GM/50 ML SYR IVP PRN (15:45)
[2018-04-27] MEDS ORDERED: PANTOPRAZOLE SODIUM 40 MG VIAL IVP ONE (15:45)
[2018-04-27] MEDS ORDERED: SODIUM CL NASAL 45 ML BTL EACHNARE PRN (15:45)
[2018-04-27] MEDS ORDERED: MEPERIDINE 25 MG/0.5 ML AMP IVP PRN (15:45)
[2018-04-27] MEDS ORDERED: MAGNESIUM HYDROXIDE 30 ML UDCUP PO PRN (15:45)
[2018-04-27] MEDS ORDERED: POTASSIUM Cl (KCl) 50 ML IV PRN (15:45)
[2018-04-27] MEDS ORDERED: BISACODYL 10 MG SUPP PR PRN (15:45)
[2018-04-27] MEDS ORDERED: fentaNYL 100 MCG/2 ML INJ IVP PRN (15:45)
[2018-04-27] MEDS ORDERED: CEPACOL LOZENGE PO PRN (15:45)
[2018-04-27] MEDS ORDERED: POLYETHYLENE GLYCOL 3350 17 GM PKT PO PRN (15:45)
[2018-04-27] MEDS ORDERED: NS 1,000 ML IV SCH (15:45)
[2018-04-27] MEDS ORDERED: ONDANSETRON DISINTEGRATING 4 MG TAB PO PRN (15:45)
--- NOTE | 2018-04-27 15:55 | POSTOPPROG ---
Post Op Note Date of Operation: 04/27/18 Surgeon: Richard Madison Assistant: Mukul Anesthesiologist: Tal Anesthesia: GET(General Endotracheal) Pre-op Diagnosis: CAD Post-op Diagnosis: same Procedure: CABGx4 (GILLILAND-LAD, SVG-D1, SVG-OM, SVG-RCA), external occlusion of ETHEL Inf/Abcess present in the surg proc area at time of surgery?: No Depth: Organ Space EBL: 100-500 Drains: Other (Chest tubes x3 (left, right, mediastinal); v-wires) Specimen(s): none
[2018-04-27] MEDS ORDERED: INSULIN REGULAR HUMAN 100 UNIT in NS 100 ML IV SCH (16:00)
[2018-04-27] MEDS ORDERED: NOREPINEPHRINE BITARTRATE 16 MG in NS 250 ML IV SCH (16:00)
[2018-04-27] MEDS ORDERED: niCARdipine/NACL 200 ML IV SCH (16:00)
[2018-04-27] MEDS ORDERED: NALOXONE HCL 0.4 MG/ML INJ IVP PRN (16:08)
--- NOTE | 2018-04-27 16:09 | POSTANESTH ---
Post Anesthetic Evaluation Cardiovascular Status: Tx Hyper/Hypo-tension (stable on infusions), Other, See Comment Respiratory Status: Other, See Comment (stable on vent) Level of Consciousness/Mental Status: Other, See Comment (sedated with propofol) Pain Control: Adequate, Prn Tx Ordered Nausea/Vomiting Control: Adequate, Prn Tx Ordered Complications Possibly Related to Anesthesia: None Noted
--- NOTE | 2018-04-27 16:22 | GCON ---
[f rep st] CONSULTATION BOTTLE ASSEMBLER CONSULTATION I was asked to see the patient by Dr. Richard Madison. REASON FOR ADMISSION: Postoperative 4 vessel coronary bypass graft. The patient is a 67-year-old white male with a past medical history including hypertension, hyperlipi demia, and coronary artery disease for which he has undergone stent placement years ago. Again, he i s examined postoperatively after receiving a 4 vessel coronary bypass graft. He apparently did well intraoperatively. He is currently sedated and on mechanical ventilation. All history is gleaned fro m the medical record. REVIEW OF SYSTEMS: Ten-point review of systems was attempted but unable to be performed secondary to sedation and mechanical ventilation. FAMILY HISTORY: Noncontributory. PAST MEDICAL HISTORY: Significant for hypertension, hyperlipidemia, and coronary artery disease. ALLERGIES: No known allergies to medications. MEDICATIONS: Medications at home include simvastatin, lisinopril, gabapentin, and Coreg. SOCIAL HISTORY: Previous smoker, none for many years. No significant alcohol use. He has a previou s history of cocaine use over 20 years ago. PHYSICAL EXAM: VITAL SIGNS: Blood pressure is 120/76. Pulse 56. Respirations are 11. Temperature is 36.5. Oxygen saturation 96% on mechanical ventilation. GENERAL: He is a mildly overweight 67-y ear-old white male who is sedated and on mechanical ventilation. HEENT: Eyes are PERRL, EOMI. Thro at: Endotracheal tube is in good position. NECK: Supple. No cervical adenopathy. HEART: Regular rate and rhythm without murmurs, rubs, gallops. LUNGS: Diminished breath sounds but no wheeze. AB DOMEN: Soft, nontender. Bowel sounds are present in all 4 quadrants. EXTREMITIES: No clubbing, cy anosis, or edema. LABORATORIES: His white count is 6.2, hemoglobin 15, hematocrit 43, platelet count is 168. INR is 1 .09. Sodium 141, potassium 4.3, chloride 106, CO2 is 27, BUN 16, creatinine 1.1, glucose is 107. IMPRESSION: 1. Coronary artery disease. 2. Status post coronary artery bypass graft. 3. Acute hypoxemic respiratory failure secondary to above. 4. History of hypertension. 5. History of hyperlipidemia. RECOMMENDATIONS: 1. Continue mechanical ventilation for now. 2. Wean to extubation. 3. Aggressive blood sugar control. 4. DVT and PE prophylaxis, holding anticoagulation for now. 5. Stress ulcer prophylaxis. 6. PT and OT. 7. Early ambulation. /[id number]/MODL
[2018-04-27] MEDS: PROPOFOL/EMULSION 50 ML IV SCH ×2 (16:30→18:18)
[2018-04-27] MEDS ORDERED: ALBUMIN 5% 500 ML BOTTLE IV ONE (17:33)
[2018-04-27] MEDS: CARVEDILOL 6.25 MG TAB PO SCH (17:53)
[2018-04-27] MEDS: LISINOPRIL 10 MG TAB PO SCH (17:53)
[2018-04-27] MEDS: ATORVASTATIN CALCIUM 20 MG TAB PO SCH (17:53)
--- NOTE | 2018-04-27 18:33 | GOP ---
[f rep st] OPERATIVE REPORT DATE OF OPERATION: 04/27/2018 SURGEON: Richard Madison MD ORNAMENTAL IRONWORKER HELPER: Johann Gilman P.A.-C. PREOPERATIVE DIAGNOSIS: Unstable angina and coronary artery disease. POSTOPERATIVE DIAGNOSIS: Unstable angina and coronary artery disease. PROCEDURE PERFORMED: 1. Quadruple coronary bypass grafting. Summary of grafts: Left internal mammary artery to the left anterior descending, saphenous vein graft from the aorta to D1, saphenous vein graft from the aorta to M1, status vein graft from the aorta to the posterior descending artery. 2. Left atrial appendage occlusion. 3. Endoscopic vein harvest from the right leg. FINDINGS: INDICATIONS: The patient is a 67-year-old gentleman admitted over the weekend with crescendo angina. He underwent cardiac catheterization and was found to have severe multivessel disease. He was drew mmended to undergo surgical revascularization. DESCRIPTION OF PROCEDURE: The patient was taken to the operating room and placed on the operating ta ble in supine position. After the induction of general anesthesia and single-lumen tracheal tube int ubation, patient was prepped and draped sterilely. Standard median sternotomy was performed, and lef t internal mammary artery was taken down with electrocautery and hemoclips while saphenous vein was h arvested from the right leg using a minimally invasive endoscopic technique. The patient was heparin ized and the mammary was divided and found to have good flow. Next, patient was cannulated with a Sa rns 8.0 soft flow aortic cannula as well as a dual stage venous right atrial cannula. Cardiopulmonar y bypass instituted, and the distal vessels were marked for grafting. Next, a cross-clamp was applie d, and the heart was arrested with 1 L of [place] solution. The PDA was 1st dissected open and anas tomosed end-to-side to a vein graft using running 7-0 Prolene. Next, the marginal branch of the circ umflex was similarly opened and anastomosed end-to-side to a separate vein graft using running 7-0 Pr olene. On the anterior wall there was kind of a bifurcating LAD, but the diagonal branch was open, a nd it was anastomosed end-to-side to a separate vein graft using a running 7-0 Prolene. The LAD was anastomosed end-to-side to the left mammary again using running 7-0 Prolene. Next, the left atrial a ppendage was occluded, and the cross-clamp was removed. The partial occlusion clamp was placed. The vein grafts were each individually anastomosed end-to-side to the ascending aorta using running 6-0 Prolene. These were de-aired and allowed to flow freely. Left and right mediastinal chest tubes wer e placed as well as 2 ventricular pacing wires. The patient was from bypass without diffic ulty and the post pump transesophageal echo showed preservation of left ventricular function, and the protamine was administered. The patient was decannulated. All cannulation sites were doubly secure d with Prolene suture and after hemostasis had been achieved, the heart was covered with pericardium and fat. The chest was closed with #6 stainless steel wires. Subcutaneous tissues and skin were breanna sed with running Vicryl suture. The patient tolerated the procedure well. /[id number]/MODL
[2018-04-27] MEDS ORDERED: PROPOFOL/EMULSION 1,000 MG/100 ML BOTTLE IV ONE (19:37)
[2018-04-27] MEDS: SENNOSIDES/DOCUSATE SODIUM TAB PO SCH (20:32)
[2018-04-27] MEDS: MUPIROCIN 2% 22 GM OINT NS SCH (20:33)
[2018-04-27] MEDS: ceFAZolin 2 GM/DEXTROSE 100 ML IV SCH (22:12)
[2018-04-27] MEDS ORDERED: LIDOCAINE 2% JELLY 20 ML (UROJECT) ONE (23:23)
[2018-04-27] MEDS ORDERED: LIDOCAINE 2% JELLY 20 ML (UROJECT) UR PRN (23:26)
[2018-04-28] MEDS: HYDROCODONE/APAP 5/325 TAB PO PRN ×4 (01:44→20:15)
[2018-04-28 04:32] LABS: PLATELET COUNT 134 10^3/uL (150-400)
[2018-04-28] MEDS: ceFAZolin 2 GM/DEXTROSE 100 ML IV SCH ×3 (05:42→23:18)
[2018-04-28] MEDS: ONDANSETRON 4 MG/2 ML VIAL IVP PRN ×2 (06:10→11:00)
[2018-04-28] MEDS: METOCLOPRAMIDE 10 MG/2 ML VIAL IVP PRN ×3 (06:10→20:46)
--- NOTE | 2018-04-28 07:33 | SOAPPROG ---
SOAP Progress Note Assessment/Plan: POD #1: urgent CABGx4 (GILLILAND-LAD, SVG-D1, SVG-OM1, SVG-PDA), exclusion ETHEL, EVH R CAD with unstable angina s/p urgent CABGx4 - [place]/AL out - CTs out later today if not draining significantly - BB/ASA/statin for secondary prevention when appropriate - PT/OT Acute post-op blood loss anemia - Stable without the need for transfusions DVT prophylaxis - SCDs Disposition - PCU Subjective: Hard to take deep breaths. Denies CP. Objective: Vital Signs Temp Pulse Resp BP Pulse Ox 37.3 C 60 14 110/51 L 97 04/28/18 04:00 04/28/18 06:00 04/28/18 06:00 04/28/18 06:00 04/28/18 06:00 Laboratory Results 04/28/18 04:00 04/28/18 04:00 04/27/18 04/28/18 04/29/18 05:59 05:59 05:59 Intake Total 1650 2762 Output Total 1100 1350 Balance 550 1412 PT 13.7 SEC (12.0-15.0) 04/25/18 07:38 INR 1.09 (0.83-1.16) 04/25/18 07:38 Physical Exam - Physical Exam General Appearance: WD/WN, alert, no apparent distress EENT: No scleral icterus (R), No scleral icterus (L) Neck: normal inspection Respiratory: No respiratory distress Cardiac/Chest: regular rate, rhythm Abdomen: non-tender, soft, No distended Skin: normal color, warm/dry Extremities: No pedal edema Neuro/Psych: no motor/sensory deficits, alert, normal mood/affect, oriented x 3 ICD10 Worksheet Patient Problems: Problems Problem Status Onset Acute blood loss anemia Acute Angina of effort Acute Coronary artery disease Acute S/P CABG x 4 Acute S/P left atrial appendage ligation Acute
[2018-04-28] MEDS: MUPIROCIN 2% 22 GM OINT NS SCH ×2 (08:44→20:21)
[2018-04-28] MEDS: SENNOSIDES/DOCUSATE SODIUM TAB PO SCH ×2 (08:47→20:19)
--- NOTE | 2018-04-28 09:18 | PDINTPN ---
Laundry Or Dry Cleaners Counter Clerk Progress Note Assessment/Plan: Assessment/plan: * Coronary disease * Status with coronary bypass graft * Atelectasis * Acute respiratory failure-secondary to above with the addition of pain. Stable off mechanical ventilation -wean FiO2 as tolerated * Pain-reasonably well controlled -will add fentanyl for breakthrough pain * VTE prophylaxis * Stress ulcer prophylaxis * PT/OT * Begin ambulation Subjective: Sitting up in chair. Complains of pain with deep inspiration or cough. Objective: Vital Signs Temp Pulse Resp BP Pulse Ox 37.3 C 56 L 16 124/73 H 92 04/28/18 04:00 04/28/18 08:00 04/28/18 08:00 04/28/18 08:00 04/28/18 08:00 Laboratory Results 04/28/18 04:00 04/28/18 04:00 04/27/18 04/28/18 04/29/18 05:59 05:59 05:59 Intake Total 1650 2762 Output Total 1100 1350 Balance 550 1412 PT 13.7 SEC (12.0-15.0) 04/25/18 07:38 INR 1.09 (0.83-1.16) 04/25/18 07:38 - Time Spent With Patient Time Spent With Patient: 35 min of time spent with patient, over 1/2 involved with coordination of care counseling. Case discussed with nursing Physical Exam - Physical Exam General Appearance: alert, mild distress EENT: PERRL/EOMI Neck: non-tender, supple Respiratory: decreased breath sounds, other (Shallow breaths), No respiratory distress, No wheezing Cardiac/Chest: normal peripheral pulses, regular rate, rhythm Peripheral Pulses: 2+: carotid (R), carotid (L), femoral (R), femoral (L), dorsalis-pedis (R), dorsalis-pedis (L) Abdomen: normal bowel sounds, non-tender, soft Male Genitalia: deferred Rectal: deferred Skin: normal color, warm/dry Extremities: non-tender Neuro/Psych: alert, normal mood/affect, oriented x 3 ICD10 Worksheet Patient Problems: Problems Problem Status Onset Acute blood loss anemia Acute Angina of effort Acute Coronary artery disease Acute S/P CABG x 4 Acute S/P left atrial appendage ligation Acute
[2018-04-28] MEDS ORDERED: fentaNYL 100 MCG/2 ML INJ IVP PRN (09:24)
[2018-04-28] MEDS: traMADol 50 MG TAB PO PRN (09:50)
[2018-04-28] MEDS ORDERED: KETOROLAC 30 MG/1 ML SDV IVP ONE (11:45)
[2018-04-28] MEDS ORDERED: KETOROLAC 30 MG/1 ML SDV ONE (11:49)
[2018-04-28] MEDS ORDERED: FUROSEMIDE 40 MG TAB PO SCH (15:00)
[2018-04-28] MEDS ORDERED: ASPIRIN 81 MG CHEWABLE TAB TUBE PRN (15:45)
[2018-04-28] MEDS: PANTOPRAZOLE SODIUM 40 MG TAB PO SCH (17:05)
[2018-04-28] MEDS ORDERED: LORazepam 1 MG TAB ONE (17:28)
[2018-04-28] MEDS: ASPIRIN 81 MG CHEWABLE TAB PO SCH (20:27)
--- NOTE | 2018-04-28 21:39 | ASMTCMCOM ---
CM Note CM Note Notes: Pt discussed in Rounds. Pt with Multi Vessel Occlusion requiring CABG x4 today. Pt will likely go home with Outpatient Cardiac Rehab. CM available for needs. Plan: Likely Home with Outpatient Cardiac Rehab Date Signed: 04/28/2018 09:38 PM Electronically Signed By:Tiffanie Coats
[2018-04-29] MEDS: ONDANSETRON 4 MG/2 ML VIAL IVP PRN ×3 (02:52→17:09)
[2018-04-29] MEDS: HYDROCODONE/APAP 5/325 TAB PO PRN ×4 (02:55→17:09)
[2018-04-29 03:31] LABS: PLATELET COUNT 119 10^3/uL (150-400)
[2018-04-29] MEDS: ceFAZolin 2 GM/DEXTROSE 100 ML IV SCH (06:18)
[2018-04-29] MEDS: METOCLOPRAMIDE 10 MG/2 ML VIAL IVP PRN ×2 (06:26→12:53)
[2018-04-29] MEDS: traMADol 50 MG TAB PO PRN ×2 (06:31→21:41)
--- NOTE | 2018-04-29 07:07 | SOAPPROG ---
SOAP Progress Note Assessment/Plan: POD #2: urgent CABGx4 (GILLILAND-LAD, SVG-D1, SVG-OM1, SVG-PDA), exclusion ETHEL, EVH R CAD with unstable angina s/p urgent CABGx4 - CTs out, TCPW in - BB/ASA/statin for secondary prevention when appropriate - Baseline HR low-normal (50's-60's) Acute post-op blood loss anemia - Stable without the need for transfusions DVT prophylaxis - SCDs Disposition - Restart home Coreg at 3.125 mg PO BID (6.25 home dose) - Restart home gabapentin - TCPW until tomorrow - Poss restart statin tomorrow - Daily diuresis - Recheck K & CXR tomorrow - PTOT to eval and treat - Anticipate home over the weekend Subjective: Pain overnight. Sleep difficult. Objective: CXR - congested throughout, marginal CXR Vital Signs Temp Pulse Resp BP Pulse Ox 36.4 C 68 13 127/79 H 95 04/29/18 04:00 04/29/18 04:00 04/29/18 04:00 04/29/18 04:00 04/29/18 04:00 Laboratory Results 04/29/18 03:09 04/29/18 03:09 04/28/18 04/29/18 04/30/18 05:59 05:59 05:59 Intake Total 2762 950 Output Total 1350 Balance 1412 950 PT 13.7 SEC (12.0-15.0) 04/25/18 07:38 INR 1.09 (0.83-1.16) 04/25/18 07:38 - Physical Exam General Appearance: WD/WN, alert, no apparent distress EENT: No scleral icterus (R), No scleral icterus (L) Neck: normal inspection Respiratory: No respiratory distress Cardiac/Chest: regular rate, rhythm Abdomen: non-tender, soft, No distended Skin: normal color, warm/dry Extremities: No pedal edema Neuro/Psych: no motor/sensory deficits, alert, normal mood/affect, oriented x 3 ICD10 Worksheet Patient Problems: Problems Problem Status Onset Acute blood loss anemia Acute Angina of effort Acute Coronary artery disease Acute S/P CABG x 4 Acute S/P left atrial appendage ligation Acute
[2018-04-29] MEDS ORDERED: KETOROLAC 30 MG/1 ML SDV IVP ONE (07:12)
[2018-04-29] MEDS ORDERED: FUROSEMIDE 20 MG/2 ML VIAL IVP ONE (07:57)
[2018-04-29] MEDS: PANTOPRAZOLE SODIUM 40 MG TAB PO SCH (08:09)
[2018-04-29] MEDS: POTASSIUM CL 10 MEQ TAB PO SCH (08:09)
[2018-04-29] MEDS: ASPIRIN 81 MG CHEWABLE TAB PO SCH (08:09)
[2018-04-29] MEDS: SENNOSIDES/DOCUSATE SODIUM TAB PO SCH ×2 (08:09→21:41)
[2018-04-29] MEDS: CARVEDILOL 3.125 MG TAB PO SCH ×2 (08:09→17:13)
[2018-04-29] MEDS: FUROSEMIDE 20 MG TAB PO SCH (08:09)
[2018-04-29] MEDS: MUPIROCIN 2% 22 GM OINT NS SCH (09:33)
[2018-04-29] MEDS: GABAPENTIN 300 MG CAP PO SCH (21:44)
[2018-04-29] MEDS: TEMAZEPAM 15 MG CAP PO PRN (23:32)
[2018-04-30] MEDS: traMADol 50 MG TAB PO PRN ×2 (06:03→10:08)
--- NOTE | 2018-04-30 07:37 | SOAPPROG ---
SOAP Progress Note Assessment/Plan: Assessment: POD#3 urgent CABGx4 (GILLILAND-LAD, SVG-D1, SVG-OM1, SVG-PDA), EVH RLE, prophylactic suture ligation ETHEL Sx severe CAD with preserved LV systolic fx - Stable s/p urgent CABGx4. CTs out. Secondary prevention with ASA, BB and statin. Acute expected blood loss anemia - Stable without the need for transfusions. VTE prophylaxis with SCDs. Plan: Inc coreg to home dose of 6.25 mg BID. Restart statin tonight. Cont gentle diuresis. Intensify pulm toilet. Dispo - Anticipate home without services in 1-2 days. 04/30/18 07:31 Subjective: Improving mobility. Looking forward to sleeping in his own bed. Legs feel "tight " moreso than swollen. Adequate analgesia but admits reluctance to breathe deeply. Would like to cough up more phlegm. Objective: Vital Signs Temp Pulse Resp BP Pulse Ox 36.6 C 70 12 150/82 H 93 04/29/18 23:24 04/30/18 04:00 04/30/18 04:00 04/30/18 04:00 04/30/18 04:00 Laboratory Results 04/29/18 03:09 04/30/18 06:25 04/29/18 04/30/18 05/01/18 05:59 05:59 05:59 Intake Total 950 1400 Output Total 1350 Balance 950 50 PT 13.7 SEC (12.0-15.0) 04/25/18 07:38 INR 1.09 (0.83-1.16) 04/25/18 07:38 Holding SR 60s-70s. Uptrending SBPs. Min suppl O2 req. Improving fluid balance. CXR-> hypoventilation, no pulm vasc congestion, patchy bibasilar atelectasis. K as expected post lasix. Physical Exam - Physical Exam General Appearance: alert, no apparent distress Respiratory: crackles (bibasilar), other (CT dressing CDI) Cardiac/Chest: regular rate, rhythm, other (Sternotomy CDI. Vwires intact.) Abdomen: non-tender, soft Skin: warm/dry Extremities: swelling (trace general), other (RLE venotomy CDI) ICD10 Worksheet Patient Problems: Problems Problem Status Onset Acute blood loss anemia Acute Angina of effort Acute Coronary artery disease Acute S/P CABG x 4 Acute S/P left atrial appendage ligation Acute
[2018-04-30] MEDS ORDERED: POTASSIUM CL 20 MEQ TAB PO ONE (08:00)
[2018-04-30] MEDS: CARVEDILOL 6.25 MG TAB PO SCH ×2 (10:08→20:01)
[2018-04-30] MEDS: FUROSEMIDE 20 MG TAB PO SCH (10:08)
[2018-04-30] MEDS: guaiFENesin 600 MG TAB.ER PO SCH ×2 (10:09→21:34)
[2018-04-30] MEDS: ASPIRIN 81 MG CHEWABLE TAB PO SCH (10:09)
[2018-04-30] MEDS: ATORVASTATIN CALCIUM 20 MG TAB PO SCH (10:09)
[2018-04-30] MEDS: PANTOPRAZOLE SODIUM 40 MG TAB PO SCH (10:09)
[2018-04-30] MEDS: SENNOSIDES/DOCUSATE SODIUM TAB PO SCH (10:10)
[2018-04-30] MEDS: POTASSIUM CL 10 MEQ TAB PO SCH (13:42)
--- NOTE | 2018-04-30 14:45 | CPEKG ---
Test Reason : OPEN Blood Pressure : / mmHG Vent. Rate : 092 BPM Atrial Rate : 093 BPM P-R Int : 200 ms QRS Dur : 137 ms QT Int : 402 ms P-R-T Axes : 038 -66 001 degrees QTc Int : 498 ms Sinus rhythm Right bundle branch block Inferior infarct, old Lateral infarct, acute Confirmed by Jensen Richey ([id number]) on 04/30/2018 2:45:34 PM Referred By: Richard Madison Confirmed By:Jensen Richey
--- NOTE | 2018-04-30 14:46 | CPEKG ---
Test Reason : OPEN Blood Pressure : / mmHG Vent. Rate : 057 BPM Atrial Rate : 057 BPM P-R Int : 169 ms QRS Dur : 097 ms QT Int : 412 ms P-R-T Axes : 069 020 052 degrees QTc Int : 401 ms Sinus rhythm Artifact leads V4 and V5 Confirmed by Jensen Richey ([id number]) on 04/30/2018 2:46:20 PM Referred By: Ramiro Love Confirmed By:Jensen Richey
--- NOTE | 2018-04-30 15:18 | ASMTCMCOM ---
CM Note CM Note Notes: 04/30/2018 Case Management Note Reviewed chart. Anticipating d/c home over the weekend with cardiac rehab. Transitional Care met w/pt today. Please see note. Transiltional Care to follow upon d/c. Case Management d/c poc: independent with cardiac outpatient rehab. Case Management available if needs change. Date Signed: 04/30/2018 03:18 PM Electronically Signed By:Ivonne Cote RN
[2018-04-30] MEDS ORDERED: SENNOSIDES/DOCUSATE SODIUM TAB PO PRN (21:00)
[2018-04-30] MEDS: TEMAZEPAM 15 MG CAP PO PRN (21:34)
[2018-04-30] MEDS: GABAPENTIN 300 MG CAP PO SCH (21:34)
--- NOTE | 2018-05-01 08:21 | SOAPPROG ---
SOAP Progress Note Assessment/Plan: Assessment: POD#4 urgent CABGx4 (GILLILAND-LAD, SVG-D1, SVG-OM1, SVG-PDA), EVH RLE, prophylactic suture ligation ETHEL Sx severe CAD with preserved LV systolic fx - Stable s/p urgent CABGx4. CTs out. Secondary prevention with ASA, BB and statin. Acute expected blood loss anemia - Stable without the need for transfusions. VTE prophylaxis with SCDs. HTN - Controlled at home on combination therapy. Staggered reintro of meds as tolerated. Plan: Remove Vwires. Cont Coreg 6.25 mg BID. Inc oral lasix to 40 mg today. Resume 1/2 home dose lisinopril tonight. Cont aggressive pulmonary toilet. Wean O2. Elev RLE at rest. Avoid prolonged dangling. Dispo - Anticipate home without services tomorrow. 05/01/18 08:17 Subjective: Donor leg puffy. Improving stamina, mobility, and appetite. +BM. Comfortable going home tomorrow. Objective: Vital Signs Temp Pulse Resp BP Pulse Ox 36.6 C 84 17 115/82 H 95 05/01/18 08:11 05/01/18 08:11 05/01/18 08:11 05/01/18 08:11 05/01/18 08:11 Laboratory Results 04/29/18 03:09 05/01/18 04:55 04/30/18 05/01/18 05/02/18 05:59 05:59 05:59 Intake Total 1400 2260 Output Total 1350 1600 375 Balance 50 660 -375 PT 13.7 SEC (12.0-15.0) 04/25/18 07:38 INR 1.09 (0.83-1.16) 04/25/18 07:38 Holding SR. SBPs remain sl elev. Almost off suppl O2. Balanced I/Os. + 4 kg overall. Physical Exam - Physical Exam General Appearance: alert, no apparent distress Respiratory: lungs clear Cardiac/Chest: regular rate, rhythm, other (Sternotomy and CT sites CDI. Vwires intact.) Abdomen: non-tender, soft Skin: warm/dry Extremities: swelling (1+ RLE, venotomy CDI. Trace LLE) ICD10 Worksheet Patient Problems: Problems Problem Status Onset Acute blood loss anemia Acute Angina of effort Acute Chronic Disease Mgmt/Transitional Care Acute Coronary artery disease Acute S/P CABG x 4 Acute S/P left atrial appendage ligation Acute
[2018-05-01] MEDS: CARVEDILOL 6.25 MG TAB PO SCH ×2 (08:52→17:11)
[2018-05-01] MEDS: ATORVASTATIN CALCIUM 20 MG TAB PO SCH (08:52)
[2018-05-01] MEDS: ASPIRIN 81 MG CHEWABLE TAB PO SCH (08:53)
[2018-05-01] MEDS: PANTOPRAZOLE SODIUM 40 MG TAB PO SCH (08:53)
[2018-05-01] MEDS: guaiFENesin 600 MG TAB.ER PO SCH ×2 (08:58→20:34)
[2018-05-01] MEDS ORDERED: FUROSEMIDE 40 MG TAB PO ONE (09:00)
[2018-05-01] MEDS ORDERED: FUROSEMIDE 20 MG/2 ML VIAL IVP ONE (15:00)
[2018-05-01] MEDS: TEMAZEPAM 15 MG CAP PO PRN (20:34)
[2018-05-01] MEDS: GABAPENTIN 300 MG CAP PO SCH (20:34)
[2018-05-01] MEDS ORDERED: LISINOPRIL 5 MG TAB PO SCH (21:00)
--- NOTE | 2018-05-02 08:36 | SOAPPROG ---
SOAP Progress Note Assessment/Plan: Assessment: POD#5 urgent CABGx4 (GILLILAND-LAD, SVG-D1, SVG-OM1, SVG-PDA), EVH RLE, prophylactic suture ligation ETHEL Sx severe CAD with preserved LV systolic fx - Stable s/p urgent CABGx4. CTs and TCPWs out. Secondary prevention with ASA, BB and statin. Acute expected blood loss anemia - Stable without the need for transfusions. VTE prophylaxis with SCDs. HTN - Controlled at home on combination therapy. Staggered reintro of meds as tolerated. Sufficient BP to resume low dose ACEI yest. Plan: Cont Coreg 6.25 mg BID. Cont Lisinopril 5 mg HS. Decr lasix to 20 mg daily. US left chest for ? tap. Dispo - Home without services, later today vs tomorrow. 05/02/18 08:36 Subjective: Doing ok. Needle phobia and dreading possibility of thoracentesis, o/w feels ready to go home. Objective: Vital Signs Temp Pulse Resp BP Pulse Ox 36.8 C 77 11 L 139/77 H 97 05/02/18 07:21 05/02/18 07:21 05/02/18 07:21 05/02/18 07:21 05/02/18 07:21 Laboratory Results 05/02/18 06:15 05/02/18 06:15 05/01/18 05/02/18 05/03/18 05:59 05:59 05:59 Intake Total 2260 1340 Output Total 1600 4675 Balance 660 -3335 PT 13.7 SEC (12.0-15.0) 04/25/18 07:38 INR 1.09 (0.83-1.16) 04/25/18 07:38 Stable HR and rhythm. Improved SBP control w addition of lisinopril last noc. Borderline suppl O2 req. Excellent diuresis with stable renal fx. CXR-> inc left basilar consolidation, sugg of effusion. Physical Exam - Physical Exam General Appearance: alert, no apparent distress Respiratory: decreased breath sounds (left base without e to a changes) Cardiac/Chest: regular rate, rhythm, other (Sternotomy, CT sites, and RLE venotomy ok) Abdomen: non-tender, soft Skin: warm/dry Extremities: other (no visible edema) ICD10 Worksheet Patient Problems: Problems Problem Status Onset Acute blood loss anemia Acute Angina of effort Acute Chronic Disease Mgmt/Transitional Care Acute Coronary artery disease Acute S/P CABG x 4 Acute S/P left atrial appendage ligation Acute
[2018-05-02] MEDS ORDERED: FUROSEMIDE 20 MG TAB PO SCH (09:00)
[2018-05-02] MEDS: guaiFENesin 600 MG TAB.ER PO SCH (09:30)
[2018-05-02] MEDS: PANTOPRAZOLE SODIUM 40 MG TAB PO SCH (09:30)
[2018-05-02] MEDS: CARVEDILOL 6.25 MG TAB PO SCH (09:30)
[2018-05-02] MEDS: ATORVASTATIN CALCIUM 20 MG TAB PO SCH (09:31)
[2018-05-02] MEDS: ASPIRIN 81 MG CHEWABLE TAB PO SCH (09:31)
[2018-05-02 11:22] VITALS: BP 124/83
--- NOTE | 2018-05-02 13:59 | PDHOMEO2F ---
Home Oxygen Face to Face Home Orders: I certify that a physician or a nurse practitioner or physician's assistant cook has had a [id number] encounter with this patient on the date of this order due to the diagnosis listed, which relates to the primary reason the patient requires home oxygen. Alternative treatments have been tried, or considered, and deemed ineffective. It is anticipated that supplemental oxygen will result in improvement with treatment. Home oxygen qualifying diagnosis: CAD Home oxygen secondary diagnosis: AYESHA SpO2 on room air (%): 87 Frequency of home oxygen needed: continuous Home oxygen liters per minute: 1 Home oxygen delivery device: nasal cannula Concentrator: Yes E-tanks for mobility and back up: Yes If ordering portable O2, is the patient mobile in the home?: Yes I certify that, based on these findings, the home oxygen is medically necessary for this patient for the following length of time. Length of time home oxygen needed: 1 month
--- NOTE | 2018-05-02 14:16 | PDDCSUM ---
Discharge Summary Discharge Summary: DATE OF ADMISSION: 04/25/18 DATE OF DISCHARGE: 05/02/18 DISPOSITION: Home, self-care PRINCIPAL ADMISSION DIAGNOSIS: Unstable angina PRINCIPAL DISCHARGE DIAGNOSES: 1. Severe multivessel coronary artery disease 2. Carotid atherosclerosis 3. Status post coronary artery bypass grafting x 4 4. Status post prophylactic ligation of the left atrial appendage 5. Acute expected blood loss anemia 6. Mild to moderate sized residual left pleural effusion HISTORY OF PRESENT ILLNESS: 67 yo male with known CAD and increasing anginal symptoms at lower levels of activity admitted for further cardiac evaluation. PERTINENT PAST MEDICAL HISTORY: CAD s/p IMI and staged stenting of RCA and LCX [place] [address] Andrez Yao, HTN, dyslipidemia, AYESHA on CPAP, obesity with BMI > 30 MEDICATIONS ON ADMISSION: ASA 325 mg daily, Carvedilol 6.25 mg BID, Zocor 40 mg nightly, Lisinopril 10 mg nightly, Gabapentin 600 mg nightly ALLERGIES/SENSITIVITIES: NKDA CONSULTANTS: Cardiology (Ivan), CV surgery (Robert), Pulmonology/critical care (Vasquez) PROCEDURES/IMAGIN/10 (Ivan): Transthoracic echocardiogram: Nl BiV size and systolic fx. No overt RWMA. Structurally nl valves. Mild MR. No pericardial effusion. 04/26 (Ivan): Left heart catheterization with selective coronary angiogram and left ventriculogram. Findings: rt dominant system, 75-85% mid LAD stenosis, subtotal prox LCX stenosis, 90% distal RCA stenosis, LVEDP 15, LVEF 65%. 04/26 Carotid Ultrasound: Mild plaquing bilateral carotid bulbs and bifuracation. 04/27 ([facility]): Urgent coronary artery bypass grafting x 4 (GILLILAND-LAD, SV-D1, SV- OM1, SV-PDA). Takedown left internal mammary artery. Endoscopic vein harvest RLE. Prophylactic suture ligation left atrial appendage. ABBREVIATED HOSPITAL COURSE BY ACTIVE PROBLEM LIST: 1. Sx severe CAD with preserved LV systolic fx - [place] r/o. Fully revascularized with CABG. Stable early postop course without dysrhythmias or significant fluid overload. Mild to moderate residual left pleural effusion identified prior to discharge but felt to be too small (by IR) to warrant thoracentesis. Aggressive secondary prevention with ASA, BB and statin. 2. Acute expected blood loss anemia - Stable. No transfusions needed. 3. HTN - Controlled at home on combination therapy. Meds reintroduced as tolerated. Sufficient BP for lower dose of ACEI. DISCHARGE CLINICAL INFORMATION: Sternum grossly stable. Sternotomy and RLE venotomy CDI, sutured. HR 70s. SBP 120s-130s. SpO2 87% RA, correcting to > 90% with 1 lpm O2. Wt 1.1 kg above admission at 108.9 kilos. WBC 9, Hgb 12.2, HCT 35.7, Plt 211, Na 136, K 4.1, Cr 0.9 DISCHARGE MEDICATIONS: As on admission with the following adjustments: 1. Decrease lisinopril to 5 mg nightly. Resume 10 mg dose if SBP consistently > 130 NEW prescriptions: 1. Lasix 20 mg daily until back to baseline weight and no swelling 2. Temazepam 15 mg HS prn insomnia 3. Tramadol 50 mg tab to 2 tabs prn incisional discomfort 4. Guaifenesin 600 mg BID up to 10 more days to promote mobilization of phlegm 5. Oxygen @ 1 Lpm continuously or as directed by SpO2 FOLLOW UP APPOINTMENTS: 1. CV surgery: with Dr Jones at [facility] on 05/11 at 11:30 am. 2. Cardiology: with Dr Love at [facility] within 4-6 weeks. Appointment to be established during surgical visit. FOLLOW UP TESTING: CXR prior to surgical appointment.
--- NOTE | 2018-05-02 14:30 | ASMTLACE ---
LACE Length of stay for Answers: 4-6 days current admission Acuity / Level of Answers: Yes Care: Did the patient have an inpatient admission? Comorbidities - select Answers: Coronary Artery Disease all that apply Other Notes: Prior stenting, HTN, HL D # of Emergency department Answers: 1-2 visits in the last 6 months Score: 11 Date Signed: 05/02/2018 02:29 PM Electronically Signed By:Ivonne Cote RN
--- NOTE | 2018-05-02 14:36 | ASMTDCNOTE ---
Case Management Discharge Discharge Order Complete? Answers: Yes Patient to Obtain Answers: via Family Medications Transportation Arranged Answers: Family/Friends Discharge Comments Notes: 05/02/2018 Case Management Note Discussed with MD. Met w/pt and . IM signed. Pt to discharge home with family support and outpatient cardiac rehab. Date Signed: 05/02/2018 02:35 PM Electronically Signed By:Ivonne Cote RN
[2018-05-02] MEDS: traMADol 50 MG TAB PO PRN (17:51)
== END 2018-05-02 18:01 | disposition home or self-care (01) | DRG 234 ==
LOC: INTOOBSV 09:14 → F2W 12:49 → OBSVTOIN 04-26 16:20 → F2N 04-27 10:23 → F2W 04-28 14:00
PROVIDERS: ADMIT Internal Medicine Interventional Cardiology; ATTEND Thoracic Surgery (Cardiothoracic Vascular Surgery)
PROC: B2111ZZ Fluoroscopy of Multiple Coronary Arteries using Low Osmolar Contrast (ICD-10-PCS; 2018-04-26)
PROC: 4A023N7 Measurement of Cardiac Sampling and Pressure, Left Heart, Percutaneous Approach (ICD-10-PCS; 2018-04-26)
PROC: B2151ZZ Fluoroscopy of Left Heart using Low Osmolar Contrast (ICD-10-PCS; 2018-04-26)
PROC: 02100Z9 Bypass Coronary Artery, One Artery from Left Internal Mammary, Open Approach (ICD-10-PCS; principal; 2018-04-27 09:30)
PROC: 02L70CK Occlusion of Left Atrial Appendage with Extraluminal Device, Open Approach (ICD-10-PCS; principal; 2018-04-27 09:30)
PROC: 5A1221Z Performance of Cardiac Output, Continuous (ICD-10-PCS; principal; 2018-04-27 09:30)
PROC: 06BP4ZZ Excision of Right Saphenous Vein, Percutaneous Endoscopic Approach (ICD-10-PCS; principal; 2018-04-27 09:30)
PROC: 021209W Bypass Coronary Artery, Three Arteries from Aorta with Autologous Venous Tissue, Open Approach (ICD-10-PCS; principal; 2018-04-27 09:30)
DX: I25.110 Atherosclerotic heart disease of native coronary artery with unstable angina pectoris (principal); D62 Acute posthemorrhagic anemia; J90 Pleural effusion, not elsewhere classified; I10 Essential (primary) hypertension; E78.00 Pure hypercholesterolemia, unspecified; G47.33 Obstructive sleep apnea (adult) (pediatric); E66.9 Obesity, unspecified; Z68.30 Body mass index [BMI] 30.0-30.9, adult; Z87.891 Personal history of nicotine dependence; I25.2 Old myocardial infarction; Z95.5 Presence of coronary angioplasty implant and graft
CPT/HCPCS: 82435-PO; 82565-PO; 82947-PO; 83605-ER; 84132-PO; 84295-PO; 84484-ER; 84520-PO; 85014-ER; 85520-90; 96365; 96366; 97116-GP; 97161-GP; 97166-GO; 97530-GO; 97530-GP; 97535-GO; C1769; G0378; J0153; J0171; J0282; J0330; J0690; J1250; J1265; J1644; J1815; J1885; J1940; J2001; J2150; J2250; J2260; J2270; J2370; J2405; J2440; J2704; J2720; J2765; J2930; J3010; J3475; P9041; Q9967

== ENCOUNTER → 2018-05-10 | Outpatient (CLI) | payer OTHER, MEDICARE | LOC: FIMAGING 13:21 → EDSTATUS 13:24 | PROVIDERS: ATTEND Thoracic Surgery (Cardiothoracic Vascular Surgery) | DX: I51.7 Cardiomegaly (principal); J91.8 Pleural effusion in other conditions classified elsewhere; Z95.1 Presence of aortocoronary bypass graft ==